=== PATIENT | female | born 1975 | race Caucasian/White ===

== ENCOUNTER → 2020-03-07 | Outpatient (CLI) | payer MEDICAID ==
--- NOTE | 2020-03-07 12:13 | REP ---
INDICATION: DDD COMPARISON: None. TECHNIQUE: Three views obtained. FINDINGS: Three views of the left shoulder performed demonstrate no fracture, dislocation or intrinsic bone disease. No significant arthritic changes are seen. IMPRESSION: Essentially negative exam left shoulder. <Electronically signed by Cyrus Emmanuel > 03/07/20 [id number]
--- NOTE | 2020-03-07 12:15 | REP ---
INDICATION: DDD. COMPARISON: None. TECHNIQUE: Two views obtained. FINDINGS: Two views of the right hip are performed. There is no acute fracture, dislocation or intrinsic bone disease. Hip joint appears unremarkable. A metallic clip is seen in the right pelvis. Multiple phleboliths are seen in the pelvis. IMPRESSION: Central negative exam right hip. <Electronically signed by Cyrus Emmanuel > 03/07/20 [id number]
== END ==
LOC: M RAD 11:35
PROVIDERS: ATTEND Internal Medicine
DX: M51.9 Unspecified thoracic, thoracolumbar and lumbosacral intervertebral disc disorder (principal)

== ENCOUNTER → 2021-11-09 | Outpatient (CLI) | payer OTHER | LOC: M PLAIMG 11:57 | PROVIDERS: ATTEND Internal Medicine | DX: R52 Pain, unspecified (principal) ==